=== PATIENT | male | born 1995 ===

== ENCOUNTER 2017-09-13 09:09 | Emergency (ER) | payer OTHER ==
[~2017-09-13] VITALS: Ht 172.7 cm; Wt 54.4 kg
[~2017-09-13 09:09] MED LIST: CEFADROXIL500 MG PO
== END 2017-09-13 17:09 | disposition home or self-care (01) ==
LOC: ER 09:09
DX: K52.9 Noninfective gastroenteritis and colitis, unspecified (principal)